=== PATIENT | female | born 1965 | race Caucasian/White ===

== ENCOUNTER 2017-09-18 19:21 | Emergency (ER) | payer BC, OTHER ==
[~2017-09-18] VITALS: Ht 152.4 cm; Wt 55.7 kg
[2017-09-18 19:33] VITALS: TEMP 36.7; O2SAT 100; Ht 152.4 cm; Wt 55.7 kg
--- NOTE | 2017-09-18 20:39 | DIAGNOSTIC IMAGING REPORT ---
R SHOULDER MIN 2 VIEWS ROUTINE CLINICAL HISTORY: 52 years-old Female presenting with right shoulder pain. TECHNIQUE: Internal rotation, external rotation, Grashey views of the right shoulder were obtained. COMPARISON: None. FINDINGS: Glenohumeral and acromioclavicular joints congruent. Tiny ossific fragment immediately superior to the acromion process at the level of the acromioclavicular joint may be degenerative in etiology. No acute fracture or malalignment. No deformity or subluxation of the humeral head. No acute fracture. IMPRESSION: 1. No acute osseous injury of the right shoulder. 2. Ossific density immediately superior to the acromion at the level of the acromioclavicular joint is indeterminate. This may be degenerative in etiology related to the acromioclavicular joint though no other degenerative changes are evident. Less likely this could represent a retained foreign body. Electronically signed by: Eran Christian M.D. 09/18/2017 8:38 PM Dictated Date/Time: 09/18/2017 8:37 PM
[2017-09-18 20:49] VITALS: BP 126/64; PULSE 84
--- NOTE | 2017-09-18 20:56 | EMERGENCY ROOM VISIT NOTE ---
ED Visit Note First contact with patient: 19:49 CHIEF COMPLAINT: Shoulder pain HISTORY OF PRESENT ILLNESS: This 52-year-old female patient presents to the emergency department, ambulatory, complaining of pain in the right shoulder which began spontaneously this morning. There is moderate limitation of motion of the arm because of the pain. The pain is moderate, constant and increases with motion of the hand and arm. She states it became severe this evening while at work and reaching up to hang an IV bag. She is a nurse here at [employer]. She left work early, and did have a physician take a look at her shoulder. She was told there was some swelling and to come to the emergency department for an x-ray. The patient states the pain is sharp and 6/10. The patient has taken nothing for relief of the pain. No previous significant previous shoulder disease or injury. No numbness or tingling. No neck or back pain. No chest pain or shortness of breath. No abdominal pain or nausea/ vomiting. No cough. No obvious injury. The patient states she was told by her that she does frequently extend her arm at the shoulder while sleeping overnight, and he often has to place her arm back down by her side. REVIEW OF SYSTEMS: A 6 system review of systems was performed with positives and pertinent negatives in the HPI. ALLERGIES: None MEDICATIONS: None PMH: None SOCIAL HISTORY: The patient lives locally with family. She denies drug, alcohol , tobacco use. PHYSICAL EXAM: Vital Signs: Reviewed nurse's notes, vital signs stable. GENERAL : This is a 52-year-old black female, in no acute distress, but appears to be in pain, well-developed, well-nourished. MUSCULOSKELETAL: There is no deformity in the contour of the right shoulder and there are no ed deformities noted. There is no sulcus sign. There is tenderness over the acromion. The patient's range of motion is severely limited due to pain. Supraspinatus strength 5/5. There is no clavicle tenderness. No tenderness of the humerus, elbow, wrist, or hand. Documentation Specialist strength 5/5. Radial pulse 2+. NECK: No tenderness to palpation over the cervical spine. Supple, no lymphadenopathy noted. HEART: Regular rate and rhythm without murmurs gallops or rubs. LUNGS: Clear to auscultation bilaterally without wheezes, rales or rhonchi. No accessory muscle use. No retractions. NEURO: The patient is alert and oriented to person, place, and time. Normal sensation to light and sharp touch. Capillary refill less than 2 seconds. RADIOLOGY: R SHOULDER MIN 2 VIEWS ROUTINE CLINICAL HISTORY: 52 years-old Female presenting with right shoulder pain. TECHNIQUE: Internal rotation, external rotation, Grashey views of the right shoulder were obtained. COMPARISON: None. FINDINGS: Glenohumeral and acromioclavicular joints congruent. Tiny ossific fragment immediately superior to the acromion process at the level of the acromioclavicular joint may be degenerative in etiology. No acute fracture or malalignment. No deformity or subluxation of the humeral head. No acute fracture. IMPRESSION: 1. No acute osseous injury of the right shoulder. 2. Ossific density immediately superior to the acromion at the level of the acromioclavicular joint is indeterminate. This may be degenerative in etiology related to the acromioclavicular joint though no other degenerative changes are evident. Less likely this could represent a retained foreign body. Electronically signed by: Eran Christian M.D. 09/18/2017 8:38 PM Dictated Date/Time: 09/18/2017 8:37 PM EMERGENCY DEPARTMENT COURSE: I examined the patient. An X-ray of the right shoulder was reviewed by myself and radiologist and shows an ossific density immediately superior to the acromion at the level of the acromioclavicular joint. I suspect this is the cause of the patient's pain, and suspect a possible calcific tendon versus degenerative change. I discussed these findings with the patient at bedside. She was offered analgesics and anti- inflammatories multiple times and declined. I did recommend anti-inflammatory medications scheduled over the next 48-72 hours, the patient declines. I did offer Voltaren gel, and the patient declines. She states she would like to use [id number] muscle rubs and essential oils first. The patient will be given a sling for comfort. She was encouraged to follow-up with orthopedics regarding the findings. Discharge instructions reviewed, the patient was discharged home in good condition. I attest that I have personally reviewed the patient's current medication list. Patient was found to have normal blood pressure on screening and does not require follow-up. Etiologies such as soft tissue injury, fracture, dislocation, neurovascular compromise, compartment syndrome, as well as others were entertained. DIAGNOSIS: Right shoulder pain Current/Historical Medications No Active Prescriptions or Reported Meds Allergies Coded Allergies: No Known Allergies (Unverified , 07/22/14) Vital Signs Date Time Temp Pulse Resp B/P (MAP) Pulse Ox O2 Delivery O2 Flow Rate FiO2 09/18/17 20:49 84 16 126/64 09/18/17 19:33 36.7 66 18 135/80 100 Room Air Departure Information Impression Primary Impression: Right shoulder tendinitis Dispostion Home / Self-Care Condition GOOD Prescriptions No Active Prescriptions or Reported Meds Referrals Pauline Lui D.O. (PCP) [facility] Patient Instructions ED Shoulder Pain [facility], [facility] Additional Instructions You have been treated in the Emergency Department for Shoulder Pain. For pain control, you can use the following [id number] medicines (if >12 yo): Ibuprofen(Motrin, Advil) may be used for fever or pain. Use 600mg every six hours as needed. Take with food. Avoid using more than 2400mg in a 24 hour period. Do not use 2400mg per day for more than three consecutive days without physician direction. Prolonged inappropriate use can lead to stomach upset or ulcers. (AND/OR) Acetaminophen(Tylenol) may be used for fever or pain. Use 1000mg every six hours as needed. Avoid using more than 3000mg in a 24 hour period. If this is a recent injury (<24 hrs), ice can be applied to the area of pain for the first 3 days to help decrease pain and inflammation. You have been provided the number for an Orthopaedic Surgeon. You should call this number as soon as possible to establish a follow-up visit from today's Emergency Department visit. Use the shoulder sling for comfort. Return to the Emergency Department if your current symptoms worsen despite treatment course outlined above, or if you develop any of the following symptoms : intractable pain despite aforementioned treatment course or new onset of numbness or tingling of the arm.
== END 2017-09-18 21:13 | disposition home or self-care (01) ==
LOC: C.EDB 19:22 → C.EDD 21:13
DX: M77.9 Enthesopathy, unspecified (principal)